=== PATIENT | female | born 1980 | race American Indian/Alaskan Native ===

== ENCOUNTER 2021-07-04 20:52 | Emergency (ER) | payer OTHER ==
[2021-07-04 21:17] VITALS: BP 124/86
[2021-07-04] MEDS ORDERED: oxyCODONE /ACETAMINOPHEN 5-325MG TAB PO ONE (21:17)
[2021-07-04] MEDS ORDERED: IBUPROFEN 800 MG TAB PO ONE (21:17)
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
== END 2021-07-04 22:32 | disposition home or self-care (01) ==
LOC: ED 20:52
DX: S83.92XA Sprain of unspecified site of left knee, initial encounter (principal); S83.91XA Sprain of unspecified site of right knee, initial encounter; S80.10XA Contusion of unspecified lower leg, initial encounter; R07.89 Other chest pain; H93.12 Tinnitus, left ear; D25.9 Leiomyoma of uterus, unspecified; V89.2XXA Person injured in unspecified motor-vehicle accident, traffic, initial encounter; Y93.89 Activity, other specified; Y92.410 Unspecified street and highway as the place of occurrence of the external cause; Y99.8 Other external cause status
CPT/HCPCS: 71045; 99283